=== PATIENT | female | born 1975 | race Caucasian/White ===

== ENCOUNTER 2017-11-30 08:58 | Emergency (ER) | payer OTHER ==
[~2017-11-30] VITALS: Ht 160 cm; Wt 73.8 kg
[~2017-11-30 08:58] MED LIST: BCPILLS PO; SERT25TA PO; SIMV40TA2 PO; [UNRECOGNIZED DRUG - OTHER] PO
[2017-11-30 09:00] VITALS: Ht 160 cm; Wt 73.8 kg
[2017-11-30 10:00] LABS: BASO % 0.3 %; BASO ABS # 0.02 K/uL (0-0.2); EOS % 1.3 %; EOS ABS # 0.09 K/uL (0-0.5); HEMATOCRIT 42.3 % (37-47); HEMOGLOBIN 14.5 g/dL (12.0-16.0); IG# 0.02 K/uL (0.00-0.02); LYMPH % 29.4 %; LYMPH ABS # 1.98 K/uL (1.2-3.4); MEAN CELL VOLUME 85.6 fL (80-100); MEAN CORPUSCULAR HEMOGLOBIN 29.4 pg (25-34); MEAN CORPUSCULAR HGB CONC 34.3 g/dl (32-36); MEAN PLATELET VOLUME 9.5 fL (7.4-10.4); MONO % 9.3 %; MONO ABS # 0.63 K/uL (0.11-0.59); NEUT % 59.4 %; PLATELET COUNT 255 K/uL (130-400); RED CELL DISTRIBUTION WIDTH CV 13.6 % (11.5-14.5); RED CELL DISTRIBUTION WIDTH SD 42.3 fL (36.4-46.3); WHITE BLOOD COUNT 6.74 K/uL (4.8-10.8)
--- NOTE | 2017-11-30 10:05 | DIAGNOSTIC IMAGING REPORT ---
CHEST ONE VIEW PORTABLE CLINICAL HISTORY: 42 years-old Female presenting with CHEST PAIN. TECHNIQUE: Portable upright AP view of the chest was obtained. COMPARISON: 04/30/2013. FINDINGS: Cardiomediastinal silhouette normal. No focal opacity. No large effusion or pneumothorax. Osseous structures normal. Upper abdomen normal. IMPRESSION: 1. No acute cardiopulmonary disease. Electronically signed by: Winston Marrero M.D. 11/30/2017 10:04 AM Dictated Date/Time: 11/30/2017 10:03 AM
[2017-11-30 10:27] LABS: ALBUMIN 4.2 gm/dl (3.4-5.0); ALKALINE PHOSPHATASE 82 U/L (45-117); ALT/SGPT 22 U/L (12-78); BLOOD UREA NITROGEN 15 mg/dl (7-18); CALCIUM 9.3 mg/dl (8.5-10.1); CARBON DIOXIDE 24 mmol/L (21-32); CREATININE 0.78 mg/dl (0.60-1.20); GLUCOSE 83 mg/dl (70-99); LIPASE 121 U/L (73-393); SODIUM 141 mmol/L (136-145)
[2017-11-30 10:39] LABS: INR 0.9 (0.9-1.1); PTT PATIENT 29.4 SECONDS (21.0-31.0)
[2017-11-30 10:55] LABS: POTASSIUM 3.6 mmol/L (3.5-5.1)
[2017-11-30 11:28] VITALS: BP 132/80; PULSE 71; TEMP 36.8; O2SAT 98
--- NOTE | 2017-11-30 16:04 | EMERGENCY ROOM VISIT NOTE ---
History First contact with patient: 09:16 Chief Complaint: CHEST PAIN Stated Complaint: CHEST PAIN, SOB, LIGHTHEADEDNESS Nursing Triage Summary: Two days ago pt states heaviness in the chest that was constant with headache. Once at work took 300mg of Zantac with no relief. Yesterday woke up diaphoretic , nauseous, with constant chest heaviness with periods of sharpness, and a "flip flop feeling, like a PVC," she also states SOB when walking up stairs. She stated that happened multiple times yesterday with the same symptoms this morning. 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 History of Present Illness The patient is a 42 year old female who presents to the Emergency Room with complaints of left-sided chest pain with occasional sharp jabs. The patient reports that she noticed chest discomfort on Monday afternoon. She also reported frequent palpitations, nausea, diaphoresis, headache and lightheadedness. Her symptoms have worsened over the past 24 hours. 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 The patient denies any personal history of cardiopulmonary disease. She does smoke 2 packs of cigarettes daily. She denies thyroid disorders, high cholesterol or diabetes. She does have a family history of coronary artery disease. The patient denies illicit drug use. She denies any pain radiating into the arm, neck, back or abdomen. She currently rates her discomfort a 5 out of 10. Review of Systems HEENT: Denies visual problems, hearing loss, tinnitus. Denies difficulty swallowing or oral lesions. PULMONARY: Denies cough, sputum production or hemoptysis. CARDIOVASCULAR: Denies orthopnea or peripheral edema, otherwise see HPI. GASTROINTESTINAL: Denies diarrhea, constipation, vomiting or abdominal pain. GENITOURINARY: Denies dysuria, frequency, urgency or nocturia. NEUROLOGIC: Denies history of epilepsy, CVA, TIA or chronic headaches. MUSCULOSKELETAL: Denies history of joint tenderness/swelling. SKIN: Denies rashes or lesions. PSYCHIATRIC: Denies history of depression or mental illness. ENDOCRINE: Denies history of diabetes or thyroid disorders. Past Medical/Surgical History Medical Problems: (1) No Known Active Medical Problems (2) ovarian cyst Social History Smoking Status: Never Smoker Alcohol Use: occasionally Marital Status: Occupation Status: employed Current/Historical Medications Scheduled Sertraline (Zoloft), 25 MG PO DAILY Simvastatin (Zocor), 40 MG PO QPM Physical Exam Vital Signs Date Time Temp Pulse Resp B/P (MAP) Pulse Ox O2 Delivery O2 Flow Rate FiO2 11/30/17 11:28 36.8 71 17 132/80 98 11/30/17 11:20 71 17 132/80 98 Room Air 11/30/17 10:28 67 13 130/79 96 Room Air 11/30/17 09:22 97 Room Air 11/30/17 09:17 72 11/30/17 09:00 36.8 81 20 140/81 97 Room Air Physical Exam CONSTITUTIONAL: Healthy and well nourished. Alert and oriented X 3 with positive affect. Patient does not appear in any significant distress. HEENT: Normocephalic, atraumatic. Pupils equal, round and reactive. No scleral icterus or conjunctival injection/pallor. Ears and nares are clear. NECK: Full active range of motion without discomfort. No JVD or carotid bruits. RESPIRATORY: Clear to auscultation bilaterally with no wheezing, crackles, rhonchi or stridor. CARDIOVASCULAR: Regular rate and rhythm with no murmurs, rubs or gallops. GASTROINTESTINAL: Bowel sounds present in all quadrants. Soft and nontender to palpation. MUSCULOSKELETAL: Full range of motion of all joints without discomfort. INTEGUMENTARY: No rash or other significant dermatologic conditions noted. HEMATOLOGIC: No ecchymosis or petechiae noted. NEUROLOGIC: Cranial nerves II-XII grossly intact. No focal neurologic deficits noted. Medical Decision & Procedures ER Provider Diagnostic Interpretation: My interpretation of an ECG shows a normal sinus rhythm of [address] elevation or other conduction abnormalities. The patient does have an old ECG dated 04/30/13 showing no changes. My interpretation of a portable chest x-ray does not show any consolidations, pneumothorax or cardiac prominence. Radiologist: CHEST ONE VIEW PORTABLE CLINICAL HISTORY: 42 years-old Female presenting with CHEST PAIN. TECHNIQUE: Portable upright AP view of the chest was obtained. COMPARISON: 04/30/2013. FINDINGS: Cardiomediastinal silhouette normal. No focal opacity. No large effusion or pneumothorax. Osseous structures normal. Upper abdomen normal. IMPRESSION: 1. No acute cardiopulmonary disease. Laboratory Results 11/30/17 09:45 Red Blood Count 4.94, Mean Corpuscular Volume 85.6, Mean Corpuscular Hemoglobin 29.4, Mean Corpuscular Hemoglobin Concent 34.3, Mean Platelet Volume 9.5, Neutrophils (%) (Auto) 59.4, Lymphocytes (%) (Auto) 29.4, Monocytes (%) (Auto) 9.3, Eosinophils (%) (Auto) 1.3, Basophils (%) (Auto) 0.3, Neutrophils # (Auto) 4.00, Lymphocytes # (Auto) 1.98, Monocytes # (Auto) 0.63, Eosinophils # (Auto) 0.09, Basophils # (Auto) 0.02 11/30/17 09:45 11/30/17 10:07 Test 11/30/17 09:45 11/30/17 10:07 White Blood Count 6.74 K/uL (4.8-10.8) Red Blood Count 4.94 M/uL (4.2-5.4) Hemoglobin 14.5 g/dL (12.0-16.0) Hematocrit 42.3 % (37-47) Mean Corpuscular Volume 85.6 fL (80-100) Mean Corpuscular Hemoglobin 29.4 pg (25-34) Mean Corpuscular Hemoglobin Concent 34.3 g/dl (32-36) Platelet Count 255 K/uL (130-400) Mean Platelet Volume 9.5 fL (7.4-10.4) Neutrophils (%) (Auto) 59.4 % Lymphocytes (%) (Auto) 29.4 % Monocytes (%) (Auto) 9.3 % Eosinophils (%) (Auto) 1.3 % Basophils (%) (Auto) 0.3 % Neutrophils # (Auto) 4.00 K/uL (1.4-6.5) Lymphocytes # (Auto) 1.98 K/uL (1.2-3.4) Monocytes # (Auto) 0.63 K/uL (0.11-0.59) Eosinophils # (Auto) 0.09 K/uL (0-0.5) Basophils # (Auto) 0.02 K/uL (0-0.2) RDW Standard Deviation 42.3 fL (36.4-46.3) RDW Coefficient of Variation 13.6 % (11.5-14.5) Immature Granulocyte % (Auto) 0.3 % Immature Granulocyte # (Auto) 0.02 K/uL (0.00-0.02) Anion Gap 7.0 mmol/L (3-11) Est Creatinine Clear Calc Drug Dose 90.4 ml/min Estimated GFR () 108.7 Estimated GFR (Non- 93.8 BUN/Creatinine Ratio 18.7 (10-20) Calcium Level 9.3 mg/dl (8.5-10.1) Total Bilirubin 0.4 mg/dl (0.2-1) Alanine Aminotransferase (ALT/SGPT) 22 U/L (12-78) Alkaline Phosphatase 82 U/L (45-117) Troponin I < 0.015 ng/ml (0-0.045) Total Protein 8.0 gm/dl (6.4-8.2) Albumin 4.2 gm/dl (3.4-5.0) Lipase 121 U/L (73-393) Prothrombin Time 9.6 SECONDS (9.0-12.0) Prothromb Time International Ratio 0.9 (0.9-1.1) Activated Partial Thromboplast Time 29.4 SECONDS (21.0-31.0) Partial Thromboplastin Ratio 1.1 D-Dimer < 190 ug/L FEU (0-500) Direct Bilirubin 0.1 mg/dl (0-0.2) Aspartate Amino Transf (AST/SGOT) 15 U/L (15-37) Total Creatine Kinase 120 U/L (26-192) Thyroid Stimulating Hormone (TSH) 1.680 uIu/ml (0.300-4.500) ED Course Patient history and physical exam were performed. Nurse's notes were reviewed. Vital signs were reviewed, showing a marginally elevated blood pressure 140/ 81. The patient's O2 saturation and pulse rate are normal. She is also afebrile. IV access was established, and labs were drawn. The patient refused any analgesics or antiemetics. ECG and portable chest x-ray were normal. Review of labs did not show any acute findings, including a normal troponin and d-dimer. TSH, electrolytes, LFTs and lipase are normal. I also reviewed the patient's monitor history showing 1 premature atrial contraction, otherwise no other acute ectopy or abnormal rhythms noted. The case was further discussed with Dr. Rosado, ED attending physician, who suggested outpatient follow-up with cardiology. The patient was advised of her normal findings. She was instructed to contact her PCP for cardiology referral. The patient will likely require 24-hour Holter monitoring. She was instructed to return to the emergency department for any progressively worsening symptoms. The patient was happy with plan of care, voiced understanding of all discharge instructions, and denied any symptoms at the time of discharge. Medical Decision Patient presents to the emergency department with complaint of palpitations, chest pain and shortness of breath. Her workup today is not suggestive of myocardial infarction, pneumothorax, pneumonia, pulmonary embolus, abnormal thyroid state, anemia, electrolyte abnormality or other significant findings. I do not suspect abdominal referred pain. Patient does not have any equal neurologic findings. She is afebrile and does not have any leukocytosis to suggest infectious etiology. [place] Drug Monitoring Program Search Results: patient reviewed within database, no issues identified Medication Reconcilliation Current Medication List: was personally reviewed by me Blood Pressure Screening Patient's blood pressure: Normal blood pressure Impression Primary Impression: Left sided chest pain Additional Impressions: Shortness of breath Palpitations Departure Information Referrals Davin Reyes, D.O. (PCP) Patient Instructions [facility] Problem Qualifiers
== END 2017-11-30 11:29 | disposition home or self-care (01) ==
LOC: C.EDB 09:00
DX: R07.9 Chest pain, unspecified (principal); R06.02 Shortness of breath; R00.2 Palpitations; F17.210 Nicotine dependence, cigarettes, uncomplicated; Z82.49 Family history of ischemic heart disease and other diseases of the circulatory system; Z79.899 Other long term (current) drug therapy